=== PATIENT | female | born 1975 | race Caucasian/White ===

== ENCOUNTER 2016-12-29 12:50 | Emergency (ER) | payer OTHER ==
[~2016-12-29] VITALS: Ht 167.6 cm; Wt 72.0 kg
[2016-12-29 13:05] VITALS: Ht 167.6 cm; Wt 72.0 kg
--- NOTE | 2016-12-29 13:37 | ERD ---
ER Documentation Chief Complaint Date/Time DATE: 12/29/16 TIME: 13:36 Chief Complaint ABDOMINAL PAIN X 3 DAYS HPI 41-year-old female otherwise healthy presents with bilateral lower pelvic pain for the past 3 days. She describes as sharp and achy, worse on the left side than the right and associated with it with a small amount of brown vaginal bleeding. She has not had any fevers or chills, nausea, vomiting or diarrhea. She reports that she has been taking ibuprofen however it has not helped very much. ROS All systems reviewed and are negative except as per history of present illness. Medications Home Meds Active Scripts Tramadol HCl (Tramadol HCl) 50 Mg Tablet, 50 MG PO Q4 Y for PAIN, #20 TAB Prov:JOSE EVANS PA-C 12/29/16 PMhx/Soc Medical and Surgical Hx: pt denies Medical Hx History of Surgery: Yes (Cholecystectomy) Hx Alcohol Use: No Hx Substance Use: No Hx Tobacco Use: No Physical Exam Vitals Vital Signs Date Time Temp Pulse Resp B/P Pulse Ox O2 Delivery O2 Flow Rate FiO2 12/29/16 13:05 98.0 72 18 144/91 97 Physical Exam General: Well-developed, well-nourished. The patient appears in no acute distress. HEENT: Head is normocephalic, atraumatic. No scleral icterus. Neck: Supple. Nontender. Lungs: Clear to auscultation. Normal air movement. Heart: Regular rate and rhythm. S1 and S2 are normal. No murmurs, gallops, or rubs. Abdomen: Nondistended. Bilateral lower pelvic pain upon palpation, no rebound or guarding, no McBurney's tenderness. Extremities: No clubbing or cyanosis. Moving extremities x 4. No weakness. Neurologic: Alert and oriented 3. No focal deficits. Normal speech and gait. Skin: Normal turgor. No rash or lesions. Results 24 hrs Laboratory Tests Test 12/29/16 13:47 Urine Color YELLOW Urine Clarity CLEAR Urine pH 6.0 Urine Specific [place] 1.047 Urine Ketones TRACEmg/dL Urine Nitrite NEGATIVEmg/dL Urine Bilirubin NEGATIVEmg/dL Urine Urobilinogen NEGATIVEmg/dL Urine Leukocyte Esterase NEGATIVELeu/ul Urine Microscopic RBC 14/HPF Urine Microscopic WBC 4/HPF Urine Squamous Epithelial Cells FEW/HPF Urine Bacteria FEW/HPF Urine Hemoglobin 2+mg/dL Urine Glucose 3+mg/dL Urine Total Protein NEGATIVEmg/dl Current Medications Medications (Trade) Dose Ordered Sig/Aaron Route PRN Reason Start Time Stop Time Status Last Admin Dose Admin Tramadol HCl (Ultram) 50 mg ONCE ONCE PO 12/29/16 14:00 12/29/16 14:01 DC DIAGNOSTIC IMAGING REPORT Patient: MINH MATHIS : 1975 Age: 41 Sex: F MR #: [id number] DOS: 12/29/16 1332 Ordering MD: JOSE EVANS PA-C Location: [facility] Room/Bed: PROCEDURE: US Pelvis. CLINICAL INDICATION: pelvic pain TECHNIQUE: Multiple sonographic images of the pelvis were obtained utilizing a transabdominal and endovaginal technique. The images were reviewed on a PACS workstation. COMPARISON: None. FINDINGS: The uterus is normal in size with a heterogeneous appearance of the myometrium. There are multiple heterogeneous masses in the uterus, measuring up to 2.7 cm, consistent with fibroids. The uterus measures 8.8 x 5.3 x 5.4 cm. The endometrial stripe is homogeneous in appearance and has the thickness of 5 mm. The ovaries are normal in size and echogenicity. Normal Doppler flow is identified in both ovaries. The right ovary measures 2.4 x 1.3 x 1.8 cm. The left ovary measures 3.3 x 1.7 x 2.0 cm. There is a 2 cm simple cyst in the left ovary. No free fluid is present within the pelvis. RPTAT: AA IMPRESSION: Fibroid uterus. Small simple cyst in the left ovary. .Rich Zaidi MD, MD Date Time Electronically viewed and signed by .Rich Zaidi MD, on 12/29/2016 14: 27 .S/ Procedures/MDM ED course: She was given tramadol for pain. Medical decision makin-year-old female presents with lower pelvic pain for the past 3 days, ultrasound shows multiple uterine fibroids as well as a simple ovarian cyst on the left side. This can explain the patient's pain. She does not have any signs of ovarian torsion, urinary tract infection, PID, cervicitis. Patient's symptoms are controlled with the tramadol. She will be given a short course and has been asked to follow-up with [facility]. Departure Diagnosis: Primary Impression: Fibroid, uterine Additional Impression: Ovarian cyst Condition: Good JOSE EVANS PA-C Dec 29, 2016 13:37
[2016-12-29] MEDS ORDERED: traMADol 50 MG TAB PO ONE (14:00)
[2016-12-29 14:08] LABS: ADD UMIC YES; UR ASCORBIC ACID NEGATIVE (NEGATIVE); UR BACTERIA FEW /HPF (NONE SEEN); UR BILIRUBIN (Dip) NEGATIVE (NEGATIVE); UR BLOOD (Dip) 2+ mg/dL (NEGATIVE); UR CLARITY CLEAR (CLEAR); UR COLOR YELLOW (YELLOW); UR GLUCOSE (Dip) 3+ mg/dL (NEGATIVE); UR KETONES (Dip) TRACE mg/dL (NEGATIVE); UR LEUKOCYTE ESTERASE (Dip) NEGATIVE Leu/ul (NEGATIVE); UR NITRITE (Dip) NEGATIVE (NEGATIVE); UR RBC 14 /HPF (0-5); UR SPECIFIC GRAVITY (Dip) 1.047 (1.003-1.030); UR SQUAMOUS EPITHELIAL CELL FEW /HPF (FEW); UR TOTAL PROTEIN (Dip) NEGATIVE (NEGATIVE); UR UROBILINOGEN (Dip) NEGATIVE (NEGATIVE)
--- NOTE | 2016-12-29 14:27 | RADRPT ---
PROCEDURE: US Pelvis. CLINICAL INDICATION: pelvic pain TECHNIQUE: Multiple sonographic images of the pelvis were obtained utilizing a transabdominal and endovaginal technique. The images were reviewed on a PACS workstation. COMPARISON: None. FINDINGS: The uterus is normal in size with a heterogeneous appearance of the myometrium. There are multiple h eterogeneous masses in the uterus, measuring up to 2.7 cm, consistent with fibroids. The uterus luz ures 8.8 x 5.3 x 5.4 cm. The endometrial stripe is homogeneous in appearance and has the thickness of 5 mm. The ovaries are normal in size and echogenicity. Normal Doppler flow is identified in both ovaries. The right ovary measures 2.4 x 1.3 x 1.8 cm. The left ovary measures 3.3 x 1.7 x 2.0 cm. There is a 2 cm simple cyst in the left ovary. No free fluid is present within the pelvis. RPTAT: AA IMPRESSION: Fibroid uterus. Small simple cyst in the left ovary. .Rich Zaidi MD, Date Time Electronically viewed and signed by .Rich Zaidi MD, MD on 12/29/2016 14:27 .S/
[2016-12-29] MEDS ORDERED: TRAM50TA2 PO (14:40)
== END 2016-12-29 15:13 | disposition home or self-care (01) ==
LOC: FTE 12:50
DX: D25.9 Leiomyoma of uterus, unspecified (principal); N83.202 Unspecified ovarian cyst, left side
CPT/HCPCS: 76830; 76856; 81001

== ENCOUNTER 2017-12-05 17:53 | Emergency (ER) | END 2017-12-05 20:02 | disposition home or self-care (01) ==